=== PATIENT | male | born 1990 | race Caucasian/White ===

== ENCOUNTER 2017-02-10 09:14 | Day surgery (SDC) | payer BC ==
--- NOTE | ~2017-02-10 | OP ---
Record Of Operation [facility] [address] [place]. [address] NAME: GIACOMO NUNN : 86 STATUS : [facility]#: [id number] AGE: 26 ADM/REG DATE : 02/10/17 MR#: [id number] REPORT SERV DATE: 02/10/17 DICTATED BY: KALEE KOEHLER DATE: 02/10/17 REPORT STATUS : Draft TRANSCRIBED BY: MODNesha DATE: 02/10/17 DATE OF PROCEDURE: 02/10/2017 PREOPERATIVE DIAGNOSIS: Right ureteral stone with pain. POSTOPERATIVE DIAGNOSIS: Right ureteral stone with pain. PROCEDURE: Cystoscopy, right retrograde pyelogram, balloon dilation of ureteral orifice, right rigid ureteroscopy, basket extraction of stone, placement of right ureteral stent, and instillation of bladder medications. ANESTHESIA: General. SPECIMENS: Right ureteral stone for stone composition analysis. DRAINS: Six variable length double-J ureteral stent with a string. DISPOSITION: Extubated to recovery room. COMPLICATIONS: None. HISTORY: This is a 26-year-old gentleman who presented to my office yesterday with intractable pain from a right ureteral stone. He presents for the above-stated procedure. PROCEDURE IN DETAIL: After consent was obtained, the patient was taken to the operating room and placed on the operative table in supine position. General anesthetic was induced. The patient was then placed in a dorsal lithotomy position. His perineum was prepped and draped in the usual sterile fashion. Examination under anesthesia reveals normal external genitalia. [employer] film on the table. His stone is not readily visible. Cystourethroscopy was performed with a 30 and 70-degree lens. Both ureteral orifices were seen. We did not see efflux from the right ureteral orifice. Right retrograde pyelogram was performed. He had a normal caliber ureter up to above the vessels, and then he had hydroureteronephrosis. We could not pass a 0.38 Bentson guidewire past the stone. We were able to pass a 0.35 angled Glidewire up to the kidney. A balloon dilator was used to dilate the ureteral orifice. Bladder was drained. The scope and sheath were removed. The safety wire was clamped to the drapes. Rigid ureteroscopy was performed up to just above the vessels. There was a kink in the ureter. We could not advance over this area. However, by stretching back, we could see beyond the kinked area. I could see the stone just beyond this area. The filiform basket was passed and the stone was grasped and removed in its entirety. A retrograde pyelogram was performed which showed an intact collecting system. Safety wire was backed through the cystoscope and the stent was placed with a good curl seen in the renal pelvis and in the bladder. It was seen to be draining after placement. A string was left on the stent exiting the patient's urethra. The bladder was drained. 20 mL of 1% lidocaine plain were passed in the bladder and the scope and sheath removed. The string was secured to the Record Of Operation [address] [id number] NAME: GIACOMO NUNN : 86 STATUS : [facility]#: [id number] AGE: 26 ADM/REG DATE : 02/10/17 MR#: [id number] REPORT SERV DATE: 02/10/17 DICTATED BY: KALEE KOEHLER DATE: 02/10/17 REPORT STATUS : Draft TRANSCRIBED BY: WILMA DATE: 02/10/17 patient's penis using Mastisol and Tegaderm. He was awakened from his anesthetic, extubated, and taken to recovery room in good condition. Plan will be to discharge him home today. All of his prescriptions were given to him at his office visit yesterday. He may remove his stent on Monday. He may follow up in 6 months with a KUB. He is instructed to drink 2 L of water a day to decrease the risk of further stones. RENEE/WILMA Kalee Koehler M.D. / [id number] CC: Jamie Perkins M.D.
[2017-02-10] MEDS ORDERED: [UNRECOGNIZED DRUG - REMARK] PO (10:04)
[2017-02-10 10:12] LABS: BASOPHILS 0.5 %; BASOPHILS ABSOLUTE 0.04 10/3/uL (0.0-0.16); EOSINOPHILS 1.9 %; EOSINOPHILS ABSOLUTE 0.14 10/3/uL (0.0-0.53); HEMATOCRIT 43.2 % (40.0-51.0); HEMOGLOBIN 14.5 g/dL (13.6-17.8); IMMATURE GRANULOCYTES 0.3 %; IMMATURE GRANULOCYTES ABSOLUTE 0.02 10/3/uL (0.0-0.11); LYMPHOCYTES 24.9 %; LYMPHOCYTES ABSOLUTE 1.87 10/3/uL (0.67-4.30); MEAN CORPUS HGB CONC 33.6 g/dL (32.0-36.0); MEAN CORPUSCULAR HEMOGLOB 29.5 pg (26.0-34.0); MEAN CORPUSCULAR VOLUME 87.8 fL (80-100); MEAN PLATELET VOLUME 9.8 fL (9.2-13.0); MONOCYTES 13.6 %; MONOCYTES ABSOLUTE 1.02 10/3/uL (0.21-1.20); NEUTROPHILS 58.8 %; NEUTROPHILS ABSOLUTE 4.43 10/3/uL (2.02-8.40); PLATELET COUNT 303 10/3/uL (150-400); RBC DISTRIBUTION WIDTH 12.4 % (12.0-16.0); RED CELL COUNT 4.92 10/6/uL (4.7-6.1); WHITE BLOOD CELLS 7.5 10/3/uL (4.5-10.5)
[2017-02-10 10:18] LABS: MANUAL DIFF NO %
[2017-02-10 10:26] LABS: BUN (BLOOD UREA NITROGEN) 11 MG/DL (6-23); CHLORIDE, SERUM 105 MMOL/L (96-112); CO2 (CARBON DIOXIDE) 30 MMOL/L (24-34); CREATININE 1.01 MG/DL (0.70-1.30); GFR AFRICAN AMERICAN 117 ML/MIN (>=60); GFR NON AFRICAN AMERICAN 101 ML/MIN (>=60); GLUCOSE, SERUM 92 MG/DL (60-99); POTASSIUM, SERUM 4.1 MMOL/L (3.5-5.3); SODIUM, SERUM 141 MMOL/L (135-148)
[2017-02-16 10:47] LABS: STONE COMPOSITION TWO DNR (())
== END 2017-02-10 17:24 | disposition home or self-care (01) ==
LOC: SDC 09:14
PROVIDERS: Urology
PROC: 0T768DZ Dilation of Right Ureter with Intraluminal Device, Via Natural or Artificial Opening Endoscopic (ICD-10-PCS; 2017-02-10)
PROC: BT1DZZZ Fluoroscopy of Right Kidney, Ureter and Bladder (ICD-10-PCS; 2017-02-10)
PROC: 0TC68ZZ Extirpation of Matter from Right Ureter, Via Natural or Artificial Opening Endoscopic (ICD-10-PCS; principal; 2017-02-10 11:45)
DX: N20.1 Calculus of ureter (principal); Z88.0 Allergy status to penicillin; N20.0 Calculus of kidney
CPT/HCPCS: 74420; 80048; 81001; 82365; 85025; A9270-GY; C1758; C1769; C2617; J0360; J2250; J2405; J2710; J3010; Q9967